=== PATIENT | male | born 1980 | race Caucasian/White ===

== ENCOUNTER 2020-02-27 13:39 | Emergency (ER) | payer OTHER, SELFPAY ==
[2020-02-27 13:45] VITALS: BP 155/96; PULSE 80; RESP 18; TEMP 36.6; O2SAT 97; BMI 29.8
--- NOTE | 2020-02-27 14:07 | XR_ITS ---
WS: [id number] Portable AP upright chest, 02/27/2020 Clinical Data: sob Comparison: Portable chest, 10/08/2017. Findings: No nodules, masses or effusions are seen. The heart is normal. The pulmonary vascularity is not increased. No pneumonia or pneumothorax is seen. XR/XR chest 1V portable [id number] Impression: Negative chest.
--- NOTE | 2020-02-27 14:08 | ECG_ITS ---
[facility] Test Date: 2020-02-27 Pat Name: Mathew Pierre Department: Room: Gender: Male Revenue Tax Specialist: : 1980 Requested By: Jennifer Quiroz Order Number: [id number] Polly MD: Jose Can M.D. Measurements Intervals [place] Rate: 74 P: 44 [place]: 158 QRS: 42 QRSD: 94 T: 38 QT: 351 QTc: 391 Interpretive Statements SINUS RHYTHM No previous ECG available for comparison Electronically Signed On 02-27-2020 16:41:04 CDT by Jose Can M.D. [id number]
--- NOTE | 2020-02-27 14:47 | W.ED.WEAKNES ---
HPI - Weakness General: Chief complaint: Weakness Stated complaint: sob, weakness Time Seen by Provider: 02/27/20 14:07 Source: patient Mode of arrival: ambulatory Limitations: no limitations History of Present Illness: HPI Narrative: 39-year-old male who presents here stating is had shortness of breath over the last week. Patient was tested Thursday for COVID but states he wants to get retested. He denies any fevers. He denies any chest pain. Patient states his dyspnea is worse with exertion. He denies any vomiting or diarrhea. MD Complaint: generalized weakness Associated symptoms: Denies chest pain, chills, dysuria, easy bruising, fever(s), headache(s), nausea or vomiting Review of Systems Const: Denies: fever(s), chills, body aches or change in appetite Eyes: Denies: blurry vision or eye discomfort ENMT: Denies: throat pain or dental pain Card: Denies: chest pain Resp: Reports: dyspnea GI: Denies: abdominal pain, nausea, vomiting or diarrhea : Denies: dysuria Musc: Denies: neck pain or back pain Skin/Breast: Denies: rash Neuro: Denies: headache(s) Psych: Denies: depression Osbaldo/Lymph: Denies: easy bruising All/Imm: Denies: urticaria Physical Exam Const: COMMON NORMALS: no acute distress, patient oriented x3 and healthy appearing HENMT: COMMON NORMALS: normocephalic and atraumatic HEAD & SCALP: normocephalic and atraumatic Eye: COMMON NORMALS: Equal, round and reactive pupils present and EOMs intact bilaterally PUPIL: Yes Equal, round and reactive pupils present Neck/C-Spine: COMMON NORMALS: full ROM and supple Chest: COMMONS NORMALS: normal inspection of the chest and normal palpation of entire chest wall Resp: COMMON NORMALS: normal respiratory effort, No retractions, No use of accessory muscles and clear to auscultation bilaterally AUSCULTATION: clear to auscultation bilaterally Cardio: COMMON NORMALS: regular rate, regular rhythm and No murmurs present (Cardio) RATE: regular rate RHYTHM: regular rhythm GI: COMMON NORMALS: Normal to inspection, nondistended, normoactive bowel sounds present, Soft to palpation, non-tender and no masses PALPATION: Yes Soft to palpation Extremity: COMMON NORMALS: normal to inspection and full ROM Neuro: COMMON NORMALS: patient oriented x3, moves all extremities and no focal motor deficits Psych: COMMON NORMALS: mental status grossly normal, Normal thought process present and cooperative THOUGHT PROCESS: Normal thought process present Skin: COMMON NORMALS: no rashes or lesions noted and no wounds GENERAL SKIN EXAM: no rashes or lesions noted Course Vital Signs: Vital signs: Vital Signs Temperature 97.8 F 02/27/20 13:45 Pulse Rate 80 02/27/20 13:45 Respiratory Rate 18 02/27/20 13:45 Blood Pressure 155/96 02/27/20 13:45 Pulse Oximetry 97 02/27/20 13:45 MDM - Weakness MDM Narrative: Medical decision making narrative: Patient presents here with likely upper respiratory infection. Patient still has a pending COVID test from last week. He is a no distress here and his x-ray is normal. Patient's lab work is normal as well. Patient is stable for discharge will prescribe azithromycin. Patient is to follow-up primary care doctor in 3 to 5 days and return if worsening. Lab Data: Labs: Lab Results 02/27/20 02/27/20 Range/Units 14:55 14:55 WBC 8.5 (4.0-10.0) 10^3/ uL RBC 5.51 H (4.1-5.3) 10^6/u L Hgb 16.2 (11.7-16.6) g/dL Hct 50.0 (42.0-52.0) % MCV 90.7 (80-94) fL MCH 29.4 (28.0-34.0) pg MCHC 32.4 (30.0-36.0) g/dL RDW 12.5 (12.1-15.1) % Plt Count 166 (130-400) 10^3/c mm MPV 9.9 (7.4-10.4) fL Neut % (Auto) 64.0 % Lymph % (Auto) 27.3 % Hale % (Auto) 5.2 % Eos % (Auto) 2.5 % Baso % (Auto) 0.5 % Neut # (Auto) 5.45 (1.8-7.7) 10^3/u L Lymph # (Auto) 2.3 (0.8-4.8) 10^3/u L Hale # (Auto) 0.4 (0.2-0.9) 10^3/u L Eos # (Auto) 0.2 (0.0-0.8) 10^3/u L Baso # (Auto) 0.0 (0.0-0.1) 10^3/u L Nucleated RBC % (a uto) 0 % Nucleated RBCs # 0.0 /100WBC Sodium 142 (136-145) mmol/L Potassium 4.1 (3.5-5.1) mmol/L Chloride 108 H (98-107) mmol/L Carbon Dioxide 24 (22-29) mmol/L Anion Gap 14.1 (5-19) BUN 9 (6-20) mg/dL Creatinine 0.9 (0.7-1.2) mg/dL GFR Calculation 93.5 (90-130) mL/min Glucose 85 (65-115) mg/dL Calculated Osmolal ity 289 (285-295) mOsm/k g Calcium 9.9 (8.5-10.5) mg/dL Total Bilirubin 0.3 (0.15-1.2) mg/dL AST 21 (0-40) U/L ALT 23 (0-41) U/L Alkaline Phosphata se 75 (40-130) IU/L Total Protein 6.7 (6.6-8.7) g/dL Albumin 4.7 (3.5-5.2) g/dL Globulin 2.0 (1.3-4.6) g/dL Imaging Data^: CXR: Attestation: I personally reviewed and interpreted this imaging study as follows: My impression: no acute abnormality Discharge Plan Discharge Patient Disposition: Home, Self-Care Clinical Impression: Upper respiratory infection Qualifiers: URI type: unspecified URI Qualified Code(s): J06.9 - Acute upper respiratory infection, unspecified Condition: Stable Prescriptions: New Zithromax Z-Rafael 250 mg tablet See Rx Instructions .ROUTE .COMPLEX Qty: 6 RF: 0 Discharge Orders: Discharge Order (Routine); Ordered 02/27/20 Ordered By: Jennifer Quiroz Referrals: [facility] [Primary Care Provider] - Discharge Diet: Advance as tolerated Discharge Activity: Resume usual activity Patient Instructions: Upper Respiratory Infection (ED) Coding Level of Care Code ED Job Placement Officer for [facility] Fwd Exam Comprehensive
[2020-02-27 15:01] LABS: Basophils % 0.5 %; Eosinophils # 0.2 10^3/uL (0.0-0.8); Eosinophils % 2.5 %; Hemoglobin 16.2 g/dL (11.7-16.6); Lymphocytes # 2.3 10^3/uL (0.8-4.8); Lymphocytes % 27.3 %; Mean Corpuscular HGB Conc 32.4 g/dL (30.0-36.0); Mean Corpuscular Hemoglobin 29.4 pg (28.0-34.0); Mean Corpuscular Volume 90.7 fL (80-94); Mean Platelet Volume 9.9 fL (7.4-10.4); Monocytes # 0.4 10^3/uL (0.2-0.9); Monocytes % 5.2 %; Neutrophils # 5.45 10^3/uL (1.8-7.7); Nucleated Red Blood Cells % 0 %; Platelet Count 166 10^3/cmm (130-400); Red Blood Count 5.51 10^6/uL (4.1-5.3); Red Cell Distribution Width 12.5 % (12.1-15.1); White Blood Count 8.5 10^3/uL (4.0-10.0)
[2020-02-27 15:15] LABS: Alanine Aminotransferase 23 U/L (0-41); Albumin Level 4.7 g/dL (3.5-5.2); Alkaline Phosphatase 75 IU/L (40-130); Anion Gap 14.1 (5-19); Aspartate Amino Transferase 21 U/L (0-40); Blood Urea Nitrogen 9 mg/dL (6-20); Calcium 9.9 mg/dL (8.5-10.5); Carbon Dioxide 24 mmol/L (22-29); Chloride 108 mmol/L (98-107); Creatinine Clr Calc Pharmacy 148.9691; Glomerular Filtration Rate 93.5 mL/min (90-130); Glucose 85 mg/dL (65-115); Osmolality Calculated 289 mOsm/kg (285-295); Potassium 4.1 mmol/L (3.5-5.1); Sodium 142 mmol/L (136-145); Total Bilirubin 0.3 mg/dL (0.15-1.2); Total Protein 6.7 g/dL (6.6-8.7)
== END 2020-02-27 15:36 | disposition home or self-care (01) ==
PROVIDERS: Emergency Provider Emergency Medicine
DX: J06.9 Acute upper respiratory infection, unspecified (principal)
CPT/HCPCS: 12345; 71045; 80053; 85025; 93005; 99282; 99283

== ENCOUNTER 2020-08-28 10:12 | Outpatient (CLI) | payer OTHER, SELFPAY ==
--- NOTE | 2020-08-28 10:56 | ECG_ITS ---
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 Measurements Intervals [place] Rate: 80 P: 49 [place]: 157 QRS: 51 QRSD: 86 T: 41 QT: 339 QTc: 393 Interpretive Statements SINUS RHYTHM WITH SINUS ARRHYTHMIA Compared to ECG 02/27/2020 14:17:00 No significant changes Electronically Signed On 08-28-2020 21:44:39 PATIENT SUPPORT TECH by Anna Chavis M.D. [id number]
[2020-08-28 11:12] LABS: Basophils % 0.4 %; Eosinophils # 0.2 10^3/uL (0.0-0.8); Eosinophils % 3.3 %; Hemoglobin 17.7 g/dL (11.7-16.6); Lymphocytes # 1.8 10^3/uL (0.8-4.8); Lymphocytes % 25.2 %; Mean Corpuscular HGB Conc 32.8 g/dL (30.0-36.0); Mean Corpuscular Hemoglobin 29.6 pg (28.0-34.0); Mean Corpuscular Volume 90.3 fL (80-94); Mean Platelet Volume 10.4 fL (7.4-10.4); Monocytes # 0.4 10^3/uL (0.2-0.9); Neutrophils # 4.54 10^3/uL (1.8-7.7); Neutrophils % 64.8 %; Nucleated Red Blood Cells % 0 %; Platelet Count 159 10^3/cmm (130-400); Red Blood Count 5.98 10^6/uL (4.1-5.3); Red Cell Distribution Width 11.8 % (12.1-15.1)
[2020-08-28 11:46] LABS: Alanine Aminotransferase 24 U/L (0-41); Albumin Level 4.7 g/dL (3.5-5.2); Alkaline Phosphatase 91 IU/L (40-130); Anion Gap 13.1 (5-19); Aspartate Amino Transferase 19 U/L (0-40); Blood Urea Nitrogen 13 mg/dL (6-20); Calcium 9.5 mg/dL (8.5-10.5); Carbon Dioxide 25 mmol/L (22-29); Chloride 107 mmol/L (98-107); Globulin 2.2 g/dL (1.3-4.6); Glomerular Filtration Rate 124.9 mL/min (90-130); Glucose 102 mg/dL (65-115); Osmolality Calculated 292 mOsm/kg (285-295); Potassium 4.1 mmol/L (3.5-5.1); Sodium 141 mmol/L (136-145); Total Bilirubin 0.2 mg/dL (0.15-1.2); Total Protein 6.9 g/dL (6.6-8.7)
== END 2020-08-28 10:13 | disposition home or self-care (01) ==
PROVIDERS: PCP Nurse Practitioner; Visit Provider Specialist
DX: J34.2 Deviated nasal septum (principal)
CPT/HCPCS: 36415; 80053; 85025; 93005

== ENCOUNTER → 2021-02-06 14:10 | Outpatient (BNVA) | payer OTHER, SELFPAY | PROVIDERS: PCP Nurse Practitioner; Visit Provider Specialist | DX: G56.22 Lesion of ulnar nerve, left upper limb (principal); F45.8 Other somatoform disorders; F41.9 Anxiety disorder, unspecified | CPT/HCPCS: 95907; 95908; 95910 ==

== ENCOUNTER 2021-06-17 11:21 | Emergency (ER) | payer OTHER, SELFPAY ==
[2021-06-17 11:53] VITALS: PULSE 83; RESP 20; TEMP 37.3; O2SAT 98; BMI 29.2
[2021-06-17 12:35] LABS: Urine Color Red (Yellow)
[2021-06-17 12:36] LABS: Add Urine Microscopic? YES; Bilirubin Urine Neg (Negative); Blood Urine 3+ (Negative); Glucose Urine UA Norm (Normal); Ketones Urine Negative (Negative); Leukocyte Esterase Urine 1+ (Negative); Nitrate Urine Positive (Negative); Protein Urine 2+ (Negative); Specific Gravity, Urine 1.015 (1.005-1.030); Urine Appearance Cloudy (CLEAR); Urobilinogen Urine 4 mg/dL (Negative); pH Urine 6.5 (5-7)
[2021-06-17 12:37] LABS: Add Urine Culture? Yes; Bacteria Urine 2+ /hpf; RBC Urine TOO NUMEROUS TO CNT /hpf (0-2); Squamous Epithelial Cell Urine 0-4 /hpf (0-5)
--- NOTE | 2021-06-17 12:54 | PC.NURSE ---
notified janes eastern philosophy professor nurse of need of room she stated one would be made available elisa.
[2021-06-17 15:50] VITALS: BP 137/82; PULSE 79; RESP 16; O2SAT 98
--- NOTE | 2021-06-17 15:54 | CTR_ITS ---
PROCEDURE INFORMATION: Exam: CT Abdomen And Pelvis Without Contrast Exam date and time: 06/17/2021 3:54 PM Age: 40 years old Clinical indication: Other: Hematuria; Abdominal pain; Flank; Right; Additional info: Pain, hematuria, infection TECHNIQUE: Imaging protocol: Computed tomography of the abdomen and pelvis without contrast. Sagittal and coronal reformatted images were created and reviewed. Radiation optimization: All CT scans at this facility use at least one of these dose optimization techniques: automated exposure control; mA and/or kV adjustment per patient size (includes targeted exams where dose is matched to clinical indication); or iterative reconstruction. COMPARISON: [place] [id number] 10/08/2017 8:44 PM RADIATION DOSE METRICS: Total DLP (mGy-cm): 1629.3 FINDINGS: Limitations: Evaluation of solid organs and vasculature is limited without intravenous contrast. This is standard protocol for evaluation of possible urolithiasis. Lungs: Visualized lungs are clear. Pleural spaces: No pleural effusion. Heart: Visualized portions of the heart are unremarkable. Liver: The liver is unremarkable. Gallbladder and bile ducts: The gallbladder is unremarkable. No biliary ductal dilatation. Pancreas: The pancreas is unremarkable. No pancreatic ductal dilatation. Spleen: The spleen is unremarkable. Adrenal glands: The right and left adrenal glands are unremarkable. Kidneys and ureters: 2.5 mm stone at the right ureteropelvic junction with mild right hydronephrosis and mild right perinephric inflammation. The left kidney is unremarkable. The left ureter is unremarkable. Stomach and bowel: No obstruction. No mucosal thickening. Appendix: The appendix is visualized and is unremarkable. No findings to suggest acute appendicitis. Intraperitoneal space: No free intraperitoneal air. No ascites. No loculated fluid collections to suggest an abscess. Vasculature: No evidence for aortic aneurysm. Lymph nodes: No lymphadenopathy. Urinary bladder: Unremarkable as visualized. Reproductive: Unremarkable as visualized. Bones/joints: Mild degenerative changes in the visualized spine. Bone island in the right inferior pubic ramus. Soft tissues: No acute abnormality in the extra-abdominal soft tissues. CT/CT kidney stone [id number] IMPRESSION: 1. 2.5 mm stone at the right ureteropelvic junction with mild right hydronephrosis and mild right perinephric inflammation. 2. Incidental/nonacute findings are listed in the report. Radiation Dose CTDIVOL = (mGy): DLP = 1629.3 (mGy-cm)
[2021-06-17 16:12] LABS: Basophils # 0.1 10^3/uL (0.0-0.1); Basophils % 0.4 %; Eosinophils % 0.2 %; Hematocrit 52.3 % (42.0-52.0); Hemoglobin 16.9 g/dL (11.7-16.6); Lymphocytes # 0.9 10^3/uL (0.8-4.8); Lymphocytes % 7.2 %; Mean Corpuscular HGB Conc 32.3 g/dL (30.0-36.0); Mean Corpuscular Hemoglobin 29.9 pg (28.0-34.0); Mean Corpuscular Volume 92.4 fl (80-94); Mean Platelet Volume 10.4 fL (7.4-10.4); Monocytes # 0.3 10^3/uL (0.2-0.9); Monocytes % 2.8 %; Neutrophils # 10.83 10^3/uL (1.8-7.7); Neutrophils % 89.1 %; Nucleated Red Blood Cells % 0 %; Platelet Count 158 10^3/cmm (130-400); Red Blood Count 5.66 10^6/uL (4.1-5.3); Red Cell Distribution Width 12.3 % (12.1-15.1); White Blood Count 12.2 10^3/uL (4.0-10.0)
[2021-06-17 18:01] LABS: Alanine Aminotransferase 12 U/L (0-41); Albumin Level 4.6 g/dL (3.5-5.2); Alkaline Phosphatase 80 IU/L (40-130); Aspartate Amino Transferase 14 U/L (0-40); Blood Urea Nitrogen 12 mg/dL (6-20); Calcium 9.3 mg/dL (8.5-10.5); Carbon Dioxide 22 mmol/L (22-29); Chloride 107 mmol/L (98-107); Globulin 2.3 g/dL (1.3-4.6); Glucose 86 mg/dL (65-115); Osmolality Calculated 297 mOsm/kg (285-295); Sodium 144 mmol/L (136-145); Total Bilirubin 0.4 mg/dL (0.15-1.2); Total Protein 6.9 g/dL (6.6-8.7)
--- NOTE | 2021-06-17 20:41 | W.ED.MALEGU ---
HPI - Male Genitourinary General: Chief complaint: Abdominal Pain Stated complaint: r flank pain, blood in urine Time Seen by Provider: 06/17/21 20:34 Source: patient Mode of arrival: ambulatory Limitations: no limitations History of Present Illness: HPI Narrative: Patient is a nice 40-year-old male who presents to ED today with what he believes could be a kidney stone. He states 2 days ago he began having pain near his right flank and states it has progressively moved down to his right back and today began moving around into his abdomen. He noticed today he was urinating blood. Patient states he has had 2 previous kidney stones never requiring intervention. He has had some nausea without episodes of vomiting. Normal bowel habits. No documented fevers or chills. MD Complaint: other (R flank/abdomen pain) Onset (ago): day(s) Duration: constant Location: right flank and abdomen Quality: sharp Relieving factors: none Exacerbating factors: none Associated symptoms: Reports dysuria, hematuria and nausea; Deny vomiting Review of Systems Const: Denies: fever(s), chills, body aches, change in appetite, change in weight, fatigue or malaise Card: Denies: chest pain Resp: Denies: dyspnea GI: Reports: abdominal pain and nausea; Denies: vomiting, diarrhea or change in bowel habits : Reports: flank pain, dysuria and hematuria; Denies: difficulty urinating or difficulty starting urination PFS ED PFSH: Social History Smoking and tobacco status: never smoked Second hand smoke exposure: No Alcohol intake: never History of recent travel: No Physical Exam Const: COMMON NORMALS: no acute distress, average body habitus, patient oriented x3, no limitations, healthy appearing, alert and well nourished GENERAL APPEARANCE: cooperative ORIENTATION/CONSCIOUSNESS: Yes awake, Yes oriented to person, Yes oriented to place and Yes oriented to time Resp: COMMON NORMALS: normal respiratory effort and clear to auscultation bilaterally AUSCULTATION: clear to auscultation bilaterally Cardio: COMMON NORMALS: regular rate and regular rhythm RATE: regular rate RHYTHM: regular rhythm GI: COMMON NORMALS: Normal to inspection, nondistended, normoactive bowel sounds present, Soft to palpation, No hepatosplenomegaly present and no masses PALPATION: Yes Soft to palpation, Yes Tenderness to palpation present (GI) (lateral R lower abdomen) and Yes No hepatosplenomegaly present : COMMON NORMALS: Yes no CVA tenderness BLADDER/KIDNEY EXAM: Yes no CVA tenderness Back/Pelvis: COMMON NORMALS: no CVA tenderness Neuro: COMMON NORMALS: patient oriented x3 SENSORIUM/ORIENTATION: Yes alert, Yes oriented to person, Yes oriented to place and Yes oriented to time Skin: COMMON NORMALS: no rashes or lesions noted GENERAL SKIN EXAM: no rashes or lesions noted Course Vital Signs: Vital signs: Vital Signs Temperature 99.1 F 06/17/21 11:53 Pulse Rate 81 06/17/21 21:00 Respiratory Rate 18 06/17/21 21:25 Blood Pressure 123/82 06/17/21 21:00 Pulse Oximetry 98 06/17/21 21:00 MDM - Male MDM Narrative: Medical decision making narrative: Patient has a 2.5 mm stone at his right UPJ. Patient's vital signs are stable. Mild white count of 12.2. Chemistry panel is unremarkable. UA does show positive nitrites, 1+ leuks, 5-10 WBCs, and 2+ bacteria. Culture pending. Spoke to Dr. Quiroz who agrees with IV ciprofloxacin here and feels patient is stable to follow-up with Dr. Akins as an outpatient-will have CM try and set this up as soon as possible. Will place on pain/nausea meds, flomax, and oral ciprofloxacin as well as directions to strain urine. Strict return to ED precautions given. Pain easily controlled here. Lab Data: Attestation: I reviewed the patient's lab results. Labs: Lab Results 06/17/21 06/17/21 06/17/21 11:24 16:17 16:17 WBC 12.2 10^3/uL H 10 ^3/uL (4.0-10.0) RBC 5.66 10^6/uL H 10 ^6/uL (4.1-5.3) Hgb 16.9 g/dL H g/dL (11.7-16.6) Hct 52.3 % H % (42.0-52.0) MCV 92.4 fl fl (80-94) MCH 29.9 pg pg (28.0-34.0) MCHC 32.3 g/dL g/dL (30.0-36.0) RDW 12.3 % % (12.1-15.1) Plt Count 158 10^3/cmm 10^3 /cmm (130-400) MPV 10.4 fL fL (7.4-10.4) Neut % (Auto) 89.1 % % Lymph % (Auto) 7.2 % % Cochran % (Auto) 2.8 % % Eos % (Auto) 0.2 % % Baso % (Auto) 0.4 % % Neut # (Auto) 10.83 10^3/uL H 1 0^3/uL (1.8-7.7) Lymph # (Auto) 0.9 10^3/uL 10^3/ uL (0.8-4.8) Cochran # (Auto) 0.3 10^3/uL 10^3/ uL (0.2-0.9) Eos # (Auto) 0.0 10^3/uL 10^3/ uL (0.0-0.8) Baso # (Auto) 0.1 10^3/uL 10^3/ uL (0.0-0.1) Nucleated RBC % (a uto) 0 % % Nucleated RBCs # 0.0 /100WBC /100W BC Sodium 144 mmol/L mmol/L (136-145) Potassium 4.0 mmol/L mmol/L (3.5-5.1) Chloride 107 mmol/L mmol/L (98-107) Carbon Dioxide 22 mmol/L mmol/L (22-29) Anion Gap 19.0 (5-19) BUN 12 mg/dL mg/dL (6-20) Creatinine 0.9 mg/dL mg/dL (0.7-1.2) GFR Calculation 93.0 mL/min mL/mi n (90-130) Glucose 86 mg/dL mg/dL (65-115) Calculated Osmolal ity 297 mOsm/kg H mOs m/kg (285-295) Calcium 9.3 mg/dL mg/dL (8.5-10.5) Total Bilirubin 0.4 mg/dL mg/dL (0.15-1.2) AST 14 U/L U/L (0-40) ALT 12 U/L U/L (0-41) Alkaline Phosphata se 80 IU/L IU/L (40-130) Total Protein 6.9 g/dL g/dL (6.6-8.7) Albumin 4.6 g/dL g/dL (3.5-5.2) Globulin 2.3 g/dL g/dL (1.3-4.6) Urine Color Red (Yellow) Urine Appearance Cloudy (CLEAR) Urine pH 6.5 (5-7) Ur Specific Gravit y 1.015 (1.005-1.030) Urine Protein 2+ H (Negative) Urine Glucose (UA) Norm (Normal) Urine Ketones Negative (Negative) Urine Blood 3+ H (Negative) Urine Nitrate Positive H (Negative) Urine Bilirubin Neg (Negative) Urine Urobilinogen 4 mg/dL H mg/dL (Negative) Ur Leukocyte Jazmín ase 1+ H (Negative) Urine RBC Too numerous to c nt /hpf H /hpf (0-2) Urine WBC 5-10 /hpf H /hpf (0-5) Ur Squamous Epith Cells 0-4 /hpf H /hpf (0-5) Amorphous Sediment Not Reportable Urine Bacteria 2+ /hpf H /hpf (NONE) Imaging Data: CT Abd/Pel: Radiologist's impression: [address] [place] [address] CT Scan Report Signed Patient: Mathew Pierre Unit #: [id number] : 1980 Age/Sex: 40 / M ADM Date: 06/17/21 Loc: ER Room/Bed: Attending Dr: Ordering Provider/Ordering MD: Mayur Leiva , [facility] Date of Service: 06/17/21 Procedure(s): CT kidney stone [id number] Accession Number(s): [id number] Report Number: [id number] PROCEDURE INFORMATION: Exam: CT Abdomen And Pelvis Without Contrast Exam date and time: 06/17/2021 3:54 PM Age: 40 years old Clinical indication: Other: Hematuria; Abdominal pain; Flank; Right; Additional info: Pain, hematuria, infection TECHNIQUE: Imaging protocol: Computed tomography of the abdomen and pelvis without contrast. Sagittal and coronal reformatted images were created and reviewed. Radiation optimization: All CT scans at this facility use at least one of these dose optimization techniques: automated exposure control; mA and/or kV adjustment per patient size (includes targeted exams where dose is matched to clinical indication); or iterative reconstruction. COMPARISON: [place] [id number] 10/08/2017 8:44 PM RADIATION DOSE METRICS: Total DLP (mGy-cm): 1629.3 FINDINGS: Limitations: Evaluation of solid organs and vasculature is limited without intravenous contrast. This is standard protocol for evaluation of possible urolithiasis. Lungs: Visualized lungs are clear. Pleural spaces: No pleural effusion. Heart: Visualized portions of the heart are unremarkable. Liver: The liver is unremarkable. Gallbladder and bile ducts: The gallbladder is unremarkable. No biliary ductal dilatation. Pancreas: The pancreas is unremarkable. No pancreatic ductal dilatation. Spleen: The spleen is unremarkable. Adrenal glands: The right and left adrenal glands are unremarkable. Kidneys and ureters: 2.5 mm stone at the right ureteropelvic junction with mild right hydronephrosis and mild right perinephric inflammation. The left kidney is unremarkable. The left ureter is unremarkable. Stomach and bowel: No obstruction. No mucosal thickening. Appendix: The appendix is visualized and is unremarkable. No findings to suggest acute appendicitis. Intraperitoneal space: No free intraperitoneal air. No ascites. No loculated fluid collections to suggest an abscess. Vasculature: No evidence for aortic aneurysm. Lymph nodes: No lymphadenopathy. Urinary bladder: Unremarkable as visualized. Reproductive: Unremarkable as visualized. Bones/joints: Mild degenerative changes in the visualized spine. Bone island in the right inferior pubic ramus. Soft tissues: No acute abnormality in the extra-abdominal soft tissues. CT/CT kidney stone [id number] IMPRESSION: 1. 2.5 mm stone at the right ureteropelvic junction with mild right hydronephrosis and mild right perinephric inflammation. 2. Incidental/nonacute findings are listed in the report. Radiation Dose CTDIVOL = (mGy): DLP = 1629.3 (mGy-cm) Dictated By: Patrizia Estrella MD Signed By: Patrizia Estrella MD Signed Date/Time: 06/17/21 1640 DD/ 1554 Discharge Plan Discharge Patient Disposition: Home Clinical Impression: Calculus of distal right ureter Condition: Stable Prescriptions: New hydrocodone-acetaminophen 5-325 mg tablet 1 tab PO Q6H PRN (Reason: pain) Qty: 14 RF: 0 Zofran 4 mg tablet 4 mg PO Q6H PRN (Reason: nausea and vomiting) Qty: 14 RF: 0 Cipro 500 mg tablet 500 mg PO Q12H Qty: 14 RF: 0 Flomax 0.4 mg capsule 0.4 mg PO DAILY Qty: 10 RF: 0 No Action ketoconazole 2 % cream 1 applic topical BID Qty: 30 RF: 2 ketoconazole 2 % shampoo 1 applic topical Q14D Qty: 120 RF: 2 fluconazole 200 mg tablet 200 mg PO DAILY Qty: 4 RF: 0 triamcinolone acetonide 0.1 % ointment 1 applic topical BID Qty: 80 RF: 0 Discharge Orders: Discharge ED (Routine); Ordered 06/17/21 Ordered By: Emily Milner Referrals: Latha Luis FNP [Primary Care Provider] - Patient Instructions: Ureteral Stones (ED), Opioid Safety Activity Restrictions/Additional Instructions: [facility] is committed to fighting the nationwide opiate epidemic. We are providing ALL patients with information regarding opiate safety. If you received opiate pain medication during your stay or if you received a prescription for opiate pain medication-please review this handout. If not, you may disregard. Thank you. As we discussed start straining your urine and bring stone with you to your urology follow-up appointment if you pass it. Begin antibiotics immediately. You need to return to the emergency department immediately for repetitive episodes of vomiting, inability to hold down your medications, severe flank pain, fevers of greater than 100.4, generally feeling unwell, or any other concerns you may have. Case management should contact you shortly to set you up with your follow-up urology appointment. I hope you begin to feel better soon. Coding Level of Care Code ED Supplier Quality Engineering Manager for [employer] Fwd Exam Detailed
[2021-06-17 21:00] VITALS: BP 123/82; PULSE 81; RESP 18; O2SAT 98
[2021-06-17] MEDS: sodium chloride 0.9% 1,000 ML 999 ML IV (21:24)
[2021-06-17 21:25] VITALS: RESP 18
[2021-06-17] MEDS: ondansetron 2 mg/ML SDV 2 mL 4 MG IVP (21:25)
[2021-06-17] MEDS: morphine 4 mg/mL SDV 1 mL IVP (21:25)
[2021-06-17] MEDS: ciprofloxacin 400 MG/200 ML PREMIX 200 MG IV (21:26)
[2021-06-17] MEDS: ketorolac 30 mg/mL INJ IVP (22:31)
[2021-06-17] MEDS: ondansetron 4 MG Tablet PO (22:34)
[2021-06-17] MEDS: HYDROcodone-acetaminophen 5-325 mg Tablet 2 TAB PO (22:34)
[2021-06-17 23:00] VITALS: BP 139/79; PULSE 75; RESP 18; O2SAT 100
[2021-06-17 23:20] VITALS: BP 137/77; PULSE 75; RESP 18; TEMP 36.8; O2SAT 98
--- NOTE | 2021-06-18 09:55 | DCPLANNER ---
fast food services manager had message to schedule a follow up appointment for patient with Dr. Akins. fast food services manager called the office of , spoke with Madhu, gave clinic patients information. fast food services manager was told that patients information would be printed and reviewed. Clinic will call patient with appointment information. Patient has [employer] insurance, caser in emailed patients information to Aminata with [employer] [facility], for the authorization process can be started.
--- NOTE | 2021-07-04 14:40 | DCPLANNER ---
Addendum entered by Kristen Ramos 09/07/21 12:12: Patient had a follow up appointment scheduled with Dr. Akins - patient did attend appointment. Original Note: Patient has a follow up appointment scheduled for Thursday, July 05, 2021 at 8:[address] Akins. Clinic will call patient with appointment information.
== END 2021-06-17 23:10 | disposition home or self-care (01) ==
PROVIDERS: Emergency Medicine; Nurse Practitioner Family; Emergency Provider Physician Assistant; PCP Nurse Practitioner
DX: N20.1 Calculus of ureter (principal); Z87.442 Personal history of urinary calculi
CPT/HCPCS: 74176; 80053; 81001; 85025; 87086; 96365; 96375; 96376; 99284; J0744; J1885; J2270; J2405; J7030; Q0162

== ENCOUNTER 2021-07-05 06:54 | Outpatient (CLI) | payer OTHER, SELFPAY ==
--- NOTE | 2021-07-05 07:00 | XR_ITS ---
WS: [id number] Exam: XR KUB [id number] Date/Time of Exam: 07/05/2021 7:05 AM Reason For Exam: URETERAL STONE No bowel obstruction or free air noted. No sign of organ enlargement. No calcifications visualized in the region of the kidneys. Normal bony structures. XR/XR KUB [id number] IMPRESSION: 1. Negative KUB.
== END 2021-07-05 06:55 | disposition home or self-care (01) ==
LOC: RAD 06:56
PROVIDERS: PCP Nurse Practitioner; Visit Provider Urology
DX: N20.1 Calculus of ureter (principal)
CPT/HCPCS: 74018; 81003; 82365; 88300

== ENCOUNTER 2023-11-09 12:46 | Emergency (ER) | payer OTHER, SELFPAY ==
--- NOTE | 2023-11-09 12:57 | W.ED.PSYCHS ---
HPI - Psych General: Chief Complaint: Psychiatric Symptoms Stated Complaint: SI Time Seen by Provider: 11/09/23 12:48 Source: patient Mode of arrival: ambulatory History of Present Illness: 42-year-old male presents emergency room directed here by the ID psychiatrist with depression and suicidal thoughts anhedonia. He has thoughts of suicidal ideation he has made attempts with medications and with firearms in the past he has been admitted twice in the last year and once prior to that for suicidal Darlene attempt. This stems from her previous childhood and services related psychologically traumatizing incidents. He states he feels like he is a burden to others does not want to burden people and is considering killing himself. Denies use of drugs or alcohol MD complaint: suicidal ideation History of same: Yes Relieving factors: none Exacerbating factors: none Associated psychiatric symptoms: none Associated symptoms: Reports depression and suicidal ideation; Deny auditory hallucinations, visual hallucinations, delusions, homicidal ideation, racing thoughts or other Treatments prior to arrival: none If self harm: admits thoughts of self harm and has plan Review of Systems Const: Denies: fever(s) or chills Card: Denies: chest pain Resp: Denies: dyspnea GI: Denies: abdominal pain : Denies: dysuria, urinary frequency or urinary urgency Musc: Denies: neck pain or back pain Skin/Breast: Denies: rash Psych: Reports: depression and suicidal ideation; Denies: visual hallucinations, auditory hallucinations or homicidal ideation [facility] ED PFSH: Medical History Urolithiasis Low back pain Erectile dysfunction Memory deficit following unspecified cerebrovascular disease Irritable bowel syndrome Pityriasis versicolor Sleep apnea Hx of traumatic brain injury Major depressive disorder Post traumatic stress disorder (PTSD) Right ureteral stone Surgical History Hx of tonsillectomy H/O: vasectomy Social History Smoking and tobacco/nicotine status: current every day tobacco/nicotine user Second hand smoke exposure: No Alcohol intake: never Substance/Drug Use: current Substance/Drug use frequency: daily Marital status: Current occupational status: disabled Physical Exam Const: COMMON NORMALS: no acute distress GENERAL APPEARANCE: cooperative and comfortable ORIENTATION/CONSCIOUSNESS: Yes awake, Yes oriented to person, Yes oriented to place and Yes oriented to time HENMT: COMMON NORMALS: normocephalic, atraumatic and hearing grossly normal bilaterally HEAD & SCALP: normocephalic and atraumatic Resp: COMMON NORMALS: normal respiratory effort, No retractions, No use of accessory muscles and clear to auscultation bilaterally AUSCULTATION: clear to auscultation bilaterally Cardio: COMMON NORMALS: regular rate, regular rhythm and No murmurs present (Cardio) RATE: regular rate RHYTHM: regular rhythm GI: COMMON NORMALS: Soft to palpation and No hepatosplenomegaly present AUSCULTATION: Yes normoactive bowel sounds PALPATION: Yes Soft to palpation, No Tenderness to palpation present (GI), No Guarding due to palpation present (GI) and Yes No hepatosplenomegaly present Extremity: COMMON NORMALS: normal to inspection, capillary refill normal, no clubbing, cyanosis or edema, no calf tenderness and no pedal edema Neuro: SENSORIUM/ORIENTATION: Yes oriented to person, Yes oriented to place and Yes oriented to time Psych: THOUGHT CONTENT: No delusions Skin: COMMON NORMALS: no rashes or lesions noted GENERAL SKIN EXAM: no rashes or lesions noted Course Vital Signs: Vital signs: Vital Signs Temperature 98.3 F 11/09/23 22:28 Pulse Rate 95 11/09/23 17:38 Respiratory Rate 18 11/09/23 22:28 Blood Pressure 121/78 11/09/23 22:28 Pulse Oximetry 95 11/09/23 22:28 Oxygen Delivery Me thod Room Air 11/09/23 17:38 MDM - Psych Medical Decision Making Patient be transferred to ID psychiatric facility. They are agreeable on transfer patient is agreeable to go. Differential Diagnosis Likely suicidal ideation Medical Records I reviewed the patient's medical records. Lab Data I reviewed the patient's lab results. 11/09/23 13:54 11/09/23 13:54 Laboratory Results WBC 5.79 10^3/uL (3.29-11.43) 11/09/23 13:54 RBC 5.10 10^6/uL (3.85-5.65) 11/09/23 13:54 Hgb 15.00 g/dL (11.27-16.99) 11/09/23 13:54 Hct 46.2 % (37-53) 11/09/23 13:54 MCV 90.6 fl (82-101) 11/09/23 13:54 MCH 29.4 pg (27-33) 11/09/23 13:54 MCHC 32.5 g/dL (30-55) 11/09/23 13:54 RDW 12.6 % (12.1-15.1) 11/09/23 13:54 Plt Count 143 10^3/cmm (157-399) L 11/09/23 13:54 MPV 10.0 fL (7.4-10.4) 11/09/23 13:54 Neut % (Auto) 62.5 % 11/09/23 13:54 Lymph % (Auto) 27.8 % 11/09/23 13:54 [place] % (Auto) 5.7 % 11/09/23 13:54 Eos % (Auto) 2.6 % 11/09/23 13:54 Baso % (Auto) 0.7 % 11/09/23 13:54 Neut # (Auto) 3.62 10^3/uL (1.8-7.7) 11/09/23 13:54 Lymph # (Auto) 1.6 10^3/uL (0.8-4.8) 11/09/23 13:54 [place] # (Auto) 0.3 10^3/uL (0.2-0.9) 11/09/23 13:54 Eos # (Auto) 0.2 10^3/uL (0.0-0.8) 11/09/23 13:54 Baso # (Auto) 0.0 10^3/uL (0.0-0.1) 11/09/23 13:54 Nucleated RBC % (auto) 0 % 11/09/23 13:54 Nucleated RBCs # 0.0 /100WBC 11/09/23 13:54 Sodium 142 mmol/L (136-145) 11/09/23 13:54 Potassium 4.2 mmol/L (3.5-5.1) 11/09/23 13:54 Chloride 108 mmol/L (98-107) H 11/09/23 13:54 Carbon Dioxide 26 mmol/L (22-29) 11/09/23 13:54 Anion Gap 12.2 (5-19) 11/09/23 13:54 BUN 14 mg/dL (6-20) 11/09/23 13:54 Creatinine 0.7 mg/dL (0.7-1.2) 11/09/23 13:54 GFR Calculation 123.1 mL/min (90-130) 11/09/23 13:54 Glucose 82 mg/dL (65-115) 11/09/23 13:54 Calculated Osmolality 294 mOsm/kg (285-295) 11/09/23 13:54 Calcium 9.0 mg/dL (8.5-10.5) 11/09/23 13:54 Total Bilirubin 0.3 mg/dL (0.15-1.2) 11/09/23 13:54 AST 13 U/L (0-40) 11/09/23 13:54 ALT 15 U/L (0-41) 11/09/23 13:54 Alkaline Phosphatase 72 U/L (40-130) 11/09/23 13:54 Total Protein 6.6 g/dL (6.6-8.7) 11/09/23 13:54 Albumin 4.2 g/dL (3.5-5.2) 11/09/23 13:54 Globulin 2.4 g/dL (1.3-4.6) 11/09/23 13:54 Salicylates < 0.3 mg/dL (3-10) L 11/09/23 13:54 Urine Opiates Screen Negative ng/mL (Negative) 11/09/23 13:24 Acetaminophen < 5.0 ug/mL (10-30) L 11/09/23 13:54 Ur Barbiturates Screen Negative ng/mL (Negative) 11/09/23 13:24 Ur Phencyclidine Scrn Negative ng/mL (Negative) 11/09/23 13:24 Ur Amphetamines Screen Negative ng/mL (Negative) 11/09/23 13:24 U Benzodiazepines Scrn Negative ng/mL (Negative) 11/09/23 13:24 Urine Cocaine Screen Negative ng/mL (Negative) 11/09/23 13:24 U Marijuana (THC) Screen Positive ng/mL (Negative) H 11/09/23 13:24 Ethyl Alcohol < 10 mg/dL (0-10) 11/09/23 13:54 Adenovirus (PCR) Not detected (NOT DETECT) 11/09/23 13:52 C. pneumoniae DNA (PCR) Not detected (NOT DETECT) 11/09/23 13:52 Coronavirus 229E (PCR) Not detected (NOT DETECT) 11/09/23 13:52 Human Metapneumovir PCR Not detected (NOT DETECT) 11/09/23 13:52 Influenza A (H1) PCR Not detected (NOT DETECT) 11/09/23 13:52 Influ A (H1/09) PCR Not detected (NOT DETECT) 11/09/23 13:52 Influenza A (H3) PCR Not detected (NOT DETECT) 11/09/23 13:52 Influenza Type A (PCR) Not detected (NOT DETECT) 11/09/23 13:52 Influenza Type B (PCR) Not detected (NOT DETECT) 11/09/23 13:52 M. pneumoniae (PCR) Not detected (NOT DETECT) 11/09/23 13:52 Parainfluenza 1 (PCR) Not detected (NOT DETECT) 11/09/23 13:52 Parainfluenza 2 (PCR) Not detected (NOT DETECT) 11/09/23 13:52 Parainfluenza 3 (PCR) Not detected (NOT DETECT) 11/09/23 13:52 Parainfluenza 4 (PCR) Not detected (NOT DETECT) 11/09/23 13:52 RSV Type A (PCR) Not detected (NOT DETECT) 11/09/23 13:52 RSV Type B (PCR) Not detected (NOT DETECT) 11/09/23 13:52 Entero/Rhino (PCR) Not detected (NOT DETECT) 11/09/23 13:52 SARS-CoV-2 (PCR) Not detected (NOT DETECT) 11/09/23 13:52 No radiology studies performed this visit Discharge Plan Discharge Patient Disposition: Xfer Psychiatric Hosp Condition: Stable Referrals: Latha Luis FNP [Primary Care Provider] - Coding Level of Care Code ED Insurance Claims Adjuster for Ruby Ramos
[2023-11-09 13:00] VITALS: BP 128/99; PULSE 81; RESP 16; O2SAT 92
--- NOTE | 2023-11-09 13:17 | PC.PHAR ---
pt states he takes care of his own medications-pt states the risperidone 4mg daily and benztropine 1mg bid was dced-pt states only taking the medications entered
--- NOTE | 2023-11-09 13:29 | ECG_ITS ---
[facility] Test Date: 2023-11-09 Pat Name: Mathew Pierre Department: Room: Gender: Male Processing Operator: : 1980 Requested By: Eilezer Mckeon Order Number: [id number] Polly MD: Misael Uriarte M.D. Measurements Intervals [place] Rate: 77 P: 48 WA: 165 QRS: 38 QRSD: 87 T: 47 QT: 337 QTc: 384 Interpretive Statements SINUS RHYTHM Compared to ECG 08/28/2020 10:46:10 Sinus arrhythmia no longer present Electronically Signed On 11-09-2023 21:50:57 CDT by Misael Uriarte M.D. [id number]
[2023-11-09 13:31] VITALS: PULSE 80; RESP 16; O2SAT 96
[2023-11-09 13:46] LABS: Amphetamines Screen Urine Negative (Negative); Barbiturates Screen Urine Negative (Negative); Benzodiazepines Screen Urine Negative (Negative); Cocaine Screen Urine Negative (Negative); Opiate Screen Urine Negative (Negative); PCP Screen Urine Negative (Negative); THC Screen Urine Positive (Negative)
[2023-11-09 14:16] LABS: Basophils % 0.7 %; Eosinophils # 0.2 10^3/uL (0.0-0.8); Eosinophils % 2.6 %; Hematocrit 46.2 % (37-53); Lymphocytes # 1.6 10^3/uL (0.8-4.8); Lymphocytes % 27.8 %; Mean Corpuscular HGB Conc 32.5 g/dL (30-55); Mean Corpuscular Hemoglobin 29.4 pg (27-33); Mean Corpuscular Volume 90.6 fl (82-101); Monocytes # 0.3 10^3/uL (0.2-0.9); Monocytes % 5.7 %; Neutrophils # 3.62 10^3/uL (1.8-7.7); Neutrophils % 62.5 %; Nucleated Red Blood Cells % 0 %; Platelet Count 143 10^3/cmm (157-399); Red Cell Distribution Width 12.6 % (12.1-15.1); White Blood Count 5.79 10^3/uL (3.29-11.43)
[2023-11-09 14:38] LABS: Alanine Aminotransferase 15 U/L (0-41); Albumin Level 4.2 g/dL (3.5-5.2); Alkaline Phosphatase 72 U/L (40-130); Anion Gap 12.2 (5-19); Aspartate Amino Transferase 13 U/L (0-40); Blood Urea Nitrogen 14 mg/dL (6-20); Carbon Dioxide 26 mmol/L (22-29); Chloride 108 mmol/L (98-107); Creatinine Clr Calc Pharmacy 178.8018; Globulin 2.4 g/dL (1.3-4.6); Glomerular Filtration Rate 123.1 mL/min (90-130); Glucose 82 mg/dL (65-115); Osmolality Calculated 294 mOsm/kg (285-295); Potassium 4.2 mmol/L (3.5-5.1); Sodium 142 mmol/L (136-145); Total Bilirubin 0.3 mg/dL (0.15-1.2); Total Protein 6.6 g/dL (6.6-8.7)
[2023-11-09 14:39] LABS: Acetaminophen < 5.0 ug/mL (10-30); Alcohol Level < 10 mg/dL (0-10); Salicylate < 0.3 mg/dL (3-10)
[2023-11-09 16:01] LABS: Adenovirus Not Detected (NOT DETECT); Chlamydia Pneumoniae Not Detected (NOT DETECT); Coronavirus 229E,HKU1,NL63,OC4 Not Detected (NOT DETECT); Human Metapneumovirus Not Detected (NOT DETECT); Human Rhinovirus/Enterovirus Not Detected (NOT DETECT); Influenza A Not Detected (NOT DETECT); Influenza A H1 Not Detected (NOT DETECT); Influenza A H1-2009 Not Detected (NOT DETECT); Influenza A H3 Not Detected (NOT DETECT); Influenza B Not Detected (NOT DETECT); Mycoplasma Pneumoniae Not Detected (NOT DETECT); Parainfluenza Virus Type 1 Not Detected (NOT DETECT); Parainfluenza Virus Type 2 Not Detected (NOT DETECT); Parainfluenza Virus Type 3 Not Detected (NOT DETECT); Parainfluenza Virus Type 4 Not Detected (NOT DETECT); Respiratory Syncytial Virus A Not Detected (NOT DETECT); Respiratory Syncytial Virus B Not Detected (NOT DETECT); SARS-COV-2 Not Detected (NOT DETECT)
[2023-11-09 17:38] VITALS: BP 118/80; PULSE 95; RESP 16; O2SAT 95
[2023-11-09] MEDS: LORazepam 2 mg Tablet PO (17:43)
--- NOTE | 2023-11-09 18:33 | PC.NURSE ---
PATIENT GIVEN IN REGARDS TO TRANSFER. PATIENT WAS OK WITH THAT INFORMATION. PATIENT STATES THAT HE WOULD LIKE HIS EVENING MEDICATIONS.
[2023-11-09] MEDS: divalproex ER 500 mg Tablet (24H) 1000 MG PO (20:49)
[2023-11-09] MEDS: divalproex ER 500 mg Tablet (24H) PO (20:50)
[2023-11-09] MEDS: quetiapine 300 mg Tablet PO (20:50)
[2023-11-09 22:28] VITALS: BP 121/78; RESP 18; TEMP 36.8; O2SAT 95
== END 2023-11-09 22:30 ==
PROVIDERS: Family Medicine; Emergency Provider Internal Medicine; PCP Nurse Practitioner
DX: F32.A Depression, unspecified (principal); R45.851 Suicidal ideations; Z11.52 Encounter for screening for COVID-19; Z72.0 Tobacco use
CPT/HCPCS: 36415; 80053; 80306; 80307; 85025; 87486; 87581; 87633; 93005; 99284

== ENCOUNTER → 2025-03-08 12:50 | Outpatient (BNVA) | payer OTHER, SELFPAY | PROVIDERS: PCP Nurse Practitioner; Referring Provider Nurse Practitioner; Visit Provider Surgery | DX: Z12.11 Encounter for screening for malignant neoplasm of colon (principal) | CPT/HCPCS: 99204 ==

== ENCOUNTER 2025-04-06 10:19 | Day surgery (SDC) | payer OTHER, SELFPAY ==
[2025-04-06 10:34] VITALS: BP 132/94; PULSE 95; RESP 18; TEMP 36.6; O2SAT 97; BMI 30.4
--- NOTE | 2025-04-06 10:36 | W.PM.OPSUD ---
Surgery/Procedure H&P Update DATE OF PROCEDURE: April 06, 2025 DATE H&P PERFORMED: 03/08/25 H&P UPDATE INFORMATION: I have reviewed H&P completed within last 30 days, I have examined patient prior to procedure, No changes to prior documentation, H&P is in [facility] EMR on date indicated and Risks and benefits of the procedure reviewed PLANNED PROCEDURE: Operation Date: 04/06/25 11:40 Proposed Procedures p Colonoscopy 44263 G0121 Z12.11(Not Applicable) - Aníbal Vázquez MD
--- NOTE | 2025-04-06 12:00 | ANES.PREANE2 ---
Pre-Anesthetic Assessment Height/Weight: Height 1.93 m Weight 113.398 kg Temp Pulse Resp BP Pulse Ox O2 Del Method 97.9 F 95 18 132/94 97 Room Air 04/06/25 10:34 04/06/25 10:34 04/06/25 10:34 04/06/25 10:34 04/06/25 10:34 04/06/25 10:34 Preop Diagnosis: screening Operation Date: 04/06/25 11:40 Proposed Procedures p Colonoscopy [id number] G0121 Z12.11(Not Applicable) - Aníbal Vázquez MD Familial anesthetic complications: none Was Beta Tonya taken within 24 hours: N/A Was Clonidine taken within 24 hours: N/A Last intake: Intake Last Liquid Date 04/05/25 Last Liquid Time 20:00 Last Solid Date 04/04/25 Last Solid Time 17:00 Social No alcohol marijuana use daily Exam alert, oriented x 3 and clear to auscultation bilaterally Airway Mallampati: Class II Dentition: full History/ROS No significant history except as noted Pulmonary Chronic Obstructive Pulmonary Disease (rarely uses inhaler ) and Sleep Apnea CV/HEM Hypertension None reported Hepatic None reported GI Gastroesophageal Reflux Disease (related to diet, rare) Metabolic None reported Musc/skel None reported Neuropsych None reported Anesthetic Plan ASA status: 2 Anesthesia: Anesthesia Evaluation and MAC Risk of > 500 ml blood loss (7ml/kg in children): Yes, adequate IV access and fluids planned Medications/Allergies Home Medications ?Medication ?Instructions ?Recorded ?Confirmed ?Last Taken ?Type divalproex 500 mg tablet,extended 2,500 mg PO QAM 03/08/25 04/04/25 04/04/25 History release 24 hr (Depakote ER) quetiapine 300 mg tablet 400 mg PO BEDTIME 03/08/25 04/04/25 04/03/25 History Allergies Allergy/AdvReac Type Severity Reaction Status Date / Time amoxicillin (From Augmentin) Allergy severe Verified 04/04/25 09:51 headaches, SOB, hives clavulanic acid (From Allergy severe Verified 04/04/25 09:51 Augmentin) headaches, SOB, hives Current Medications Generic Name Dose Route Start Last Admin Trade Name Freq PRN Reason Stop Dose Admin Sodium Chloride 1,000 mls @ 15 mls/hr 04/06/25 10:22 04/06/25 10:48 Sodium Chloride 0.9% IV 04/07/25 10:21 15 mls/hr .Q24H PRN Administration COLONOSCOPY FLUIDS PFSH Anesthesia Medical History Urolithiasis Low back pain Erectile dysfunction Memory deficit following unspecified cerebrovascular disease Irritable bowel syndrome Pityriasis versicolor Sleep apnea Hx of traumatic brain injury Major depressive disorder Post traumatic stress disorder (PTSD) Right ureteral stone Surgical History Hx of tonsillectomy H/O: vasectomy Social History Smoking and tobacco/nicotine status: current every day tobacco/nicotine user (weed) Second hand smoke exposure: No Alcohol intake: never Substance/Drug Use: current Substance/Drug use frequency: daily Marital status: Current occupational status: disabled Data Anesthesia Cardiac Studies: Cardiac Event Monitor 09/23/23
[2025-04-06 12:53] VITALS: BP 107/73; PULSE 89; RESP 16; TEMP 36.4; O2SAT 96
--- NOTE | 2025-04-06 12:55 | SUR.OPER ---
cecum time [id number]
[2025-04-06 13:06] VITALS: BP 110/75; PULSE 88; RESP 16; O2SAT 94
--- NOTE | 2025-04-06 15:31 | ANE.PACU2 ---
Inpatient post-anesthesia follow up: Airway intact: Yes Vital signs: Temperature 97.6 F Pulse Rate 88 Respiratory Rate 16 Blood Pressure 110/75 Pulse Oximetry 94 Oxygen Delivery Me thod Room Air Oxygen Flow Rate Fraction of Inspir ed Oxygen Hydration adequate: Yes Nausea and vomiting: No Pain level: 1 Mental status: Baseline
== END 2025-04-06 13:24 | disposition home or self-care (01) ==
PROVIDERS: PCP Nurse Practitioner; Visit Provider Surgery
PROC: 0DJD8ZZ Inspection of Lower Intestinal Tract, Via Natural or Artificial Opening Endoscopic (ICD-10-PCS; CPT 45378; principal; 2025-04-06 11:40)
DX: K59.00 Constipation, unspecified (principal); R19.7 Diarrhea, unspecified; G47.30 Sleep apnea, unspecified; F32.9 Major depressive disorder, single episode, unspecified; F43.10 Post-traumatic stress disorder, unspecified; F12.90 Cannabis use, unspecified, uncomplicated; J44.9 Chronic obstructive pulmonary disease, unspecified; I10 Essential (primary) hypertension; K21.9 Gastro-esophageal reflux disease without esophagitis
CPT/HCPCS: 45380; 88305; J2250; J2704; J7030; J9999

== ENCOUNTER → 2025-04-18 11:20 | Outpatient (BNVA) | payer OTHER, SELFPAY | PROVIDERS: PCP Nurse Practitioner; Visit Provider Surgery | DX: Z09 Encounter for follow-up examination after completed treatment for conditions other than malignant neoplasm (principal); R03.0 Elevated blood-pressure reading, without diagnosis of hypertension | CPT/HCPCS: 99213 ==